=== PATIENT | female | born 2000 | race Caucasian/White ===

== ENCOUNTER → 2024-08-31 08:23 | Outpatient (REF) | payer BC, SELFPAY | LOC: RAD 08:23 | PROVIDERS: ATTENDING PHYSICIAN Nurse Practitioner Family | DX: R05.1 Acute cough (principal) | CPT/HCPCS: 71046 ==

== ENCOUNTER 2024-09-21 21:06 | Emergency (ER) | payer BC, SELFPAY ==
[2024-09-21 21:08] VITALS: BP 136/91
[2024-09-21] MEDS: NSS 1000 IV (22:55)
[2024-09-21] MEDS: BENTYL 20 MG IM (22:59)
[2024-09-21 23:08] VITALS: BP 112/76
--- NOTE | 2024-09-21 23:08 | ED.GENMED ---
History of Present Illness
<YADI Hoover Jr. Last Filed: 09/22/24 15:20>
General
Chief Complaint: Abdominal Symptoms
Source: patient and spouse
Exam Limitations: none
Time Seen by Provider: 09/21/24 22:10
Nursing documentation reviewed up to this point in time: agreed with
History of Present Illness
History of Present Illness:
24-year-old female presenting to the emergency department today with concerns of recurrence of abdominal pain and mucus in her stool. Recently diagnosed with C. difficile and finished her vancomycin dosing last week initially seemed to have
improving symptoms but worsening symptoms over the past 3 days. Also having worsening abdominal pain. Has been able to have bowel movements but has had a large amount of mucus with it. Some nausea no vomiting. No fevers no chest pain or
shortness of breath.
Review of Systems
<YADI Hoover Jr. Last Filed: 09/22/24 15:20>
Review of Systems
Allergies reviewed?: Yes
All Other Systems: ROS reviewed and negative except as documented in HPI and ROS
Phy Exam
<YADI Hoover Jr. Last Filed: 09/22/24 15:20>
Physical Exam
Physical Exam:
GENERAL: Alert , in no apparent distress
EYE: pupils equal and reactive
NECK: Supple, no significant adenopathy.
ENT: o/p clr, mmm.
CARDIAC: Regular rate and rhythm .
LUNGS: Clear breath sounds bilaterally, no acute respiratory distress, no wheezes/rales/rhonchi
ABDOMEN: Vague diffuse abdominal pain
NEUROLOGICAL: Alert and oriented, no focal neuro deficits
SKIN: Warm and dry, skin intact.
MUSCULOSKELETAL: No edema, well perfused.
PSYCH: Normal and appropriate interaction.
Course
<Jhony Reynaga Jr., PA-C - Last Filed: 09/22/24 15:20>
Orders/Labs/Results
Orders:
Orders
09/21/24 22:41
CT Abd/Pel (IV only)-[facility] only Urgent
Comment:
Reason For Exam: abd pain recent Cdiff
0.9% Sodium Chloride 1000 ml [Nss] 1,000 ml IV BOLUS
Dicyclomine HCl [Bentyl] 20 mg IM NOW STA
09/21/24 22:53
Complete Blood Count/With Diff Urgent
Comprehensive Metabolic Panel Urgent
HCG, Serum Qualitative Screen Urgent
Comment: ADD ON
Lactic Acid Urgent
Lipase Urgent
09/21/24 23:03
Add On- LAB Urgent
Tests Added?: serum hcg qual
09/21/24 23:04
Urinalysis Reflex To Culture Urgent
Date Specimen was Collected: 09/21/24
Time Specimen was Collected: 22:57
Urine Microscopic Reflex Cult Urgent
09/22/24 00:39
STOOL [C difficile Antigen & Toxins] Urgent
TRI Source: Feces/Stool
Specimen Description:
Date Specimen was Collected: 09/22/24
Time Specimen was Collected: 00:30
Stool Culture Urgent
TRI Source: Feces/Stool
Specimen Description:
Date Specimen was Collected: 09/22/24
Time Specimen was Collected: 00:31
Abnormal Lab Results
09/21/24 09/21/24
22:53 23:04
Eosinophils % 6.2 H %
(0-6)
Glucose 124 H mg/dl
(70-99)
Ur Occult Blood Reflex 4+ A
(Negative)
Urine RBC 3-6 A /HPF
(0-2)
Urine Yeast Few A
(Negative)
09/21/24 22:53
09/21/24 22:53
Vital Signs
Initial and Last Documented VS:
Initial Vital Signs
Temp Pulse Resp BP Pulse Ox
97.7 F 96 18 136/91 98
09/21/24 21:08 09/21/24 21:08 09/21/24 21:08 09/21/24 21:08 09/21/24 21:08
Last Documented Vital Signs
Temp Pulse Resp BP Pulse Ox
97.7 F 86 18 132/87 97
09/21/24 21:08 09/22/24 01:41 09/22/24 01:41 09/22/24 01:41 09/22/24 01:41
<Nicolas Stewart PA-C - Last Filed: 09/22/24 01:41>
Orders/Labs/Results
Orders:
Orders
09/21/24 22:41
CT Abd/Pel (IV only)-[facility] only Urgent
Comment:
Reason For Exam: abd pain recent Cdiff
0.9% Sodium Chloride 1000 ml [Nss] 1,000 ml IV BOLUS
Dicyclomine HCl [Bentyl] 20 mg IM NOW STA
09/21/24 22:53
Complete Blood Count/With Diff Urgent
Comprehensive Metabolic Panel Urgent
HCG, Serum Qualitative Screen Urgent
Comment: ADD ON
Lactic Acid Urgent
Lipase Urgent
09/21/24 23:03
Add On- LAB Urgent
Tests Added?: serum hcg qual
09/21/24 23:04
Urinalysis Reflex To Culture Urgent
Date Specimen was Collected: 09/21/24
Time Specimen was Collected: 22:57
Urine Microscopic Reflex Cult Urgent
09/22/24 00:39
STOOL [C difficile Antigen & Toxins] Urgent
TRI Source: Feces/Stool
Specimen Description:
Date Specimen was Collected: 09/22/24
Time Specimen was Collected: 00:30
Stool Culture Urgent
TRI Source: Feces/Stool
Specimen Description:
Date Specimen was Collected: 09/22/24
Time Specimen was Collected: 00:31
Abnormal Lab Results
09/21/24 09/21/24
22:53 23:04
Eosinophils % 6.2 H %
(0-6)
Glucose 124 H mg/dl
(70-99)
Ur Occult Blood Reflex 4+ A
(Negative)
Urine RBC 3-6 A /HPF
(0-2)
Urine Yeast Few A
(Negative)
09/21/24 22:53
09/21/24 22:53
Vital Signs
Initial and Last Documented VS:
Initial Vital Signs
Temp Pulse Resp BP Pulse Ox
97.7 F 96 18 136/91 98
09/21/24 21:08 09/21/24 21:08 09/21/24 21:08 09/21/24 21:08 09/21/24 21:08
Last Documented Vital Signs
Temp Pulse Resp BP Pulse Ox
97.7 F 86 18 132/87 97
09/21/24 21:08 09/22/24 01:41 09/22/24 01:41 09/22/24 01:41 09/22/24 01:41
<Jhony Reynaga Jr., PA-C - Last Filed: 09/22/24 15:20>
MDM/Problems Addressed
MDM/Problems Addressed:
24-year-old female presenting to the emergency department today with concerns of abdominal crampy discomfort as well as mucus in her stool. Recently diagnosed with C. difficile and treated with vancomycin concluding last week initially symptoms
were improving until worsening over the past few days. On arrival vital signs are normal. Patient does have discomfort throughout the abdomen to palpation. Concern for recurrence of C. difficile. Patient's outpatient doctor did order for Doxy
mycin but unable to start this until Monday, 2 days from today.
<Jhony Reynaga Jr., PA-C - Last Filed: 09/22/24 15:20>
*Critical Care Note
Total Time (30-74mins, 75-104mins- exclusive of procedures): Not Applicable
<Nicolas Stewart PA-C - Last Filed: 09/22/24 01:41>
Update Note
Update Note:
CT abdomen shows no acute finding. Reassessed patient. Resting comfortably upon entrance into the room. Stool study was provided but will not receive culture today. [facility] sent for Bentyl and fidoximicin.
ED Attending Note
<Jhony Reynaga Jr., PA-C - Last Filed: 09/22/24 15:20>
-
Portions of this chart may have been created with voice recognition software.� Occasional wrong word or��sound alike� substitutions may have occurred due to the inherent limitations of voice recognition software.
Discharge Plan
Departure
Patient Disposition: Home (Routine Discharge)
Date of Disposition: 09/22/24
Time of Disposition: 01:13
Patient with high blood pressure during this ER visit?: No
Condition: Good
Covid-19: Not Applicable
Discharge Problem:
Clostridium difficile infection
Instructions: C. difficile infection
Prescriptions:
New
fidaxomicin 200 mg tablet
200 mg PO BID 10 Days Qty: 20 0RF
dicyclomine 10 mg capsule
10 mg PO QID PRN (Reason: abdominal pain) Qty: 10 0RF
No Action
cetirizine [Zyrtec] 10 mg Tablet
10 mg PO DAILY PRN (Reason: allergies)
midodrine 5 mg Tablet
5 mg PO BID
Referrals:
Torrie Johnson CRNP [Family Provider] -
Esdras Rodriguez MD [Active] - Follow up in 10 days
Stand Alone Forms: Back to School
Activity Restrictions/Additional Instructions:
You came to the emergency department today for concerns of recurrence of C. difficile. Please take the fidixomicin as prescribed. Please follow closely with GI. Return for any worsening, new or concerning symptoms.
Interventions
Interventions:
*Risk Screen - Suicide Last Done: 09/21/24 21:10
*General Assessment Last Done: 09/21/24 21:10
*Neglect/Abuse Screening Last Done: 09/21/24 21:10
*ED- Fall Risk Assessment Last Done: 09/22/24 01:44
*ED COVID-19 Vaccine History Last Done: 09/21/24 21:10
*Nursing Disposition Last Done: 09/22/24 01:44
AF-Xikaej-Hpyhjpukkn Assessment Last Done: 09/21/24 22:50
Discharge Date and Time
Discharge Date/Time: 09/22/24 01:45
Print Language: [email or web address]
[2024-09-21 23:12] LABS: Urine Albumin Negative (Neg - Trace); Urine Bilirubin Negative (Negative); Urine Character Clear (Clear); Urine Color Yellow; Urine Glucose Negative (Negative); Urine Ketone Negative (Negative); Urine Leukocyte Negative (Negative); Urine Nitrite Negative (Negative); Urine Occult Blood 4+ (Negative); Urine Urobilinogen Negative (Neg - 1+)
[2024-09-21 23:13] LABS: Lactic Acid 1.9 mmol/L (0.7-2.0)
[2024-09-21 23:14] LABS: Hematocrit 37.2 % (37.0-47.0); Hemoglobin 12.5 g/dL (12.0-16.0); Mean Corp Hgb Conc. 33.6 g/dL (33.0-37.0); Mean Corpuscular Hgb 29.1 pg (27.0-31.0); Mean Corpuscular Volume 86.7 fL (81.0-99.0); Mean Platelet Volume 9.3 fL (7.4-10.4); Platelet Count 265 10^3/uL (130-400); Red Blood Cell Count 4.29 10^6/uL (4.20-5.40); Red Cell Dist. Width 13.2 % (11.5-14.5); White Blood Cell Count 8.8 10^3/uL (4.8-10.8)
[2024-09-21 23:30] LABS: HCG, Serum Qualitative Screen Negative
[2024-09-21 23:38] LABS: % Basophils 1.2 % (0-2); % Eosinophils 6.2 % (0-6); % Immature Granulocytes 0.2 % (0-0.5); % Lymphocytes 32.8 % (20.5-51.1); % Monocytes 7.1 % (1.7-9.3); % Neutrophils 52.5 % (42.2-75.2); ALT (SGPT) 17 U/L (0-35); AST (SGOT) 26 U/L (14-36); Absolute Basophils 0.1 10^3/uL (0-0.2); Absolute Eosinophils 0.6 10^3/uL (0-0.7); Absolute Lymphocytes 2.9 10^3/uL (1.2-3.4); Absolute Monocytes 0.6 10^3/uL (0.1-0.6); Absolute Neutrophils 4.6 10^3/uL (1.4-6.5); Albumin 4.2 g/dl (3.5-5.0); Alkaline Phosphatase 42 U/L (38-126); Blood Urea Nitrogen 17 mg/dl (7-17); Calcium 9.7 mg/dl (8.4-10.2); Carbon Dioxide 27 mmol/L (22-30); Chloride 103 mmol/L (98-107); Glucose 124 mg/dl (70-99); Lipase 76 U/L (23-300); Nucleated Red Blood Cells % 0 %; Potassium 4.1 mmol/L (3.5-5.1); Sodium 137 mmol/L (135-145); Total Bilirubin 0.2 mg/dl (0.2-1.3); eGFR > 60.00
[2024-09-21 23:44] LABS: Urine Squamous Cell 0-2 /LPF (Few); Urine White Cell None Seen /HPF (0-5)
[2024-09-21 23:45] LABS: Urine Yeast Few (Negative)
[2024-09-22 01:41] VITALS: BP 132/87
== END 2024-09-22 01:45 | disposition home or self-care (01) ==
LOC: EMR 21:06
PROVIDERS: Physician Assistant; EMERGENCY PHYSICIAN Emergency Medicine; FAMILY PHYSICIAN Nurse Practitioner Family
DX: A04.72 Enterocolitis due to Clostridium difficile, not specified as recurrent (principal)
CPT/HCPCS: 99284; 96372; 96360; 74177; 80053; 81003; 81015; 83605; 83690; 84703; 85025; 87045; 87046; 87324; 87427; 87449; Q9967